=== PATIENT | male | born 1970 | race American Indian/Alaskan Native ===

== ENCOUNTER 2017-04-06 07:43 | Emergency (ER) | payer MEDICAID, OTHER ==
[2017-04-06 08:19] LABS: Basophils % (Auto) 0.7 % (0.0-1.8); Eosinophils % (Auto) 1.4 % (0.0-4.3); Hematocrit 40.5 % (35.5-45.6); Hemoglobin 13.9 gm/dl (11.8-15.2); Mean Corpuscular HGB Conc 34 % (32-34); Mean Corpuscular Hemoglobin 33 pg (28-32); Mean Corpuscular Volume 96 fl (84-94); Platelet Count 194 K/mm3 (140-440); Red Blood Count 4.22 M/mm3 (3.65-5.03); Red Cell Distribution Width 12.6 % (13.2-15.2); White Blood Count 3.5 K/mm3 (4.5-11.0)
[2017-04-06 08:37] LABS: Anion Gap 17 mmol/L; Blood Urea Nitrogen 13 mg/dL (9-20); Carbon Dioxide 27 mmol/L (22-30); Chloride 101.2 mmol/L (98-107); Glucose 177 mg/dL (75-100); Potassium 4.2 mmol/L (3.6-5.0); Sodium 141 mmol/L (137-145)
[2017-04-06] MEDS ORDERED: MOTRIN PO ONE (15:22)
--- NOTE | 2017-04-06 15:23 | Emergency Department Report ---
ED Chest Pain HPI - General Chief Complaint: Chest Pain Stated Complaint: CHEST PAIN Time Seen by Provider: 04/06/17 15:08 Source: patient Mode of arrival: Ambulatory Limitations: No Limitations - Related Data Home Medications Medication Instructions Recorded Confirmed Last Taken No Known Home Medications [No 04/06/17 04/06/17 Unknown Reported Home Medications] Allergies Allergy/AdvReac Type Severity Reaction Status Date / Time No Known Allergies Allergy Unverified 04/06/17 07:58 ED Review of Systems ROS: Stated complaint: CHEST PAIN Other details as noted in HPI ED Past Medical Hx - Past Medical History Previous Medical History?: Yes Additional medical history: Back pain/injury - Surgical History Past Surgical History?: No - Social History Smoking Status: Never Smoker Substance Use Type: Non Opiate Pain - Medications Home Medications: Home Medications Medication Instructions Recorded Confirmed Last Taken Type No Known Home Medications [No 04/06/17 04/06/17 Unknown History Reported Home Medications] ED Physical Exam - General Limitations: No Limitations ED Course Vital Signs 04/06/17 07:58 Temperature 98 F Pulse Rate 66 Respiratory 18 Rate Blood Pressure 112/73 O2 Sat by Pulse 99 Oximetry ED Medical Decision Making - Lab Data Result diagrams: 04/06/17 08:08 04/06/17 08:08 Critical care attestation.: If time is entered above; I have spent that time in minutes in the direct care of this critically ill patient, excluding procedure time. ED Disposition Condition: Stable Referrals: [facility] [Other] - 3-5 Days
--- NOTE | 2017-04-06 16:26 | Emergency Department Report ---
ED Chest Pain HPI - General Chief Complaint: Chest Pain Stated Complaint: CHEST PAIN Time Seen by Provider: 04/06/17 15:08 Source: patient Mode of arrival: Ambulatory Limitations: No Limitations - History of Present Illness Initial Comments: This is a 46-year-old male. He is previously unknown to me. His primary care doctor is Dr. Iglesias. The patient presents to ER complaining of chest pain. The chest pain is central, and does not radiate to the back, arms or neck. There is no nausea, vomiting or diaphoresis. There is no leg pain or leg swelling. No recent trips greater than 4 hours. No recent hospital admissions. Patient took aspirin yesterday. No cocaine use. Patient also complains of simultaneous paraspinal trapezius pain. Patient reports no recent trauma. Patient reports pain increases with palpation, range of motion, decreases with rest, and increases with palpation. There is no family history of heart disease that he is aware of. MD Complaint: chest pain -: Gradual, days(s) Onset: during rest Pain Location: substernal Severity scale (0 -10): 6 Quality: aching Consistency: constant Improves With: rest Worsens With: palpation, movement re: denies: nausea, vomting, diaphoresis, dyspnea, sense of impending doom Aspirin use within the Past 7 Days: (1) Yes - Related Data On Oral Contraceptives: No Home Medications Medication Instructions Recorded Confirmed Last Taken No Known Home Medications [No 04/06/17 04/06/17 Unknown Reported Home Medications] Allergies Allergy/AdvReac Type Severity Reaction Status Date / Time No Known Allergies Allergy Unverified 04/06/17 07:58 Heart Score - HEART Score History: Slightly suspicious EKG: Normal Age: 45-65 Risk factors: No known risk factors Troponin: < normal limit HEART Score: 1 - Critical Actions Critical Actions: 0-3 pts:0.9-1.7%risk of adverse cardiac event.Candidate for discharge ED Review of Systems ROS: Stated complaint: CHEST PAIN Other details as noted in HPI Constitutional: denies: diaphoresis, fever, malaise Eyes: denies: vision change ENT: denies: throat pain Respiratory: see HPI. denies: wheezing Cardiovascular: chest pain Gastrointestinal: denies: vomiting Genitourinary: as per HPI Musculoskeletal: denies: myalgia Skin: denies: lesions Neurological: denies: weakness Psychiatric: as per HPI ED Past Medical Hx - Past Medical History Previous Medical History?: Yes Additional medical history: Back pain/injury - Surgical History Past Surgical History?: No - Social History Smoking Status: Never Smoker Substance Use Type: Non Opiate Pain - Medications Home Medications: Home Medications Medication Instructions Recorded Confirmed Last Taken Type No Known Home Medications [No 04/06/17 04/06/17 Unknown History Reported Home Medications] ED Physical Exam - General Limitations: No Limitations General appearance: alert, in no apparent distress - Head Head exam: Present: atraumatic, normocephalic - Eye Eye exam: Present: normal appearance, EOMI. Absent: nystagmus - ENT ENT exam: Present: normal exam, normal orophraynx, mucous membranes moist - Neck Neck exam: Present: normal inspection, full ROM - Respiratory Respiratory exam: Present: normal lung sounds bilaterally, chest wall tenderness. Absent: respiratory distress, wheezes, rales, rhonchi, stridor - Cardiovascular Cardiovascular Exam: Present: regular rate, normal rhythm, normal heart sounds. Absent: systolic murmur, diastolic murmur, rubs, gallop - GI/Abdominal GI/Abdominal exam: Present: soft, normal bowel sounds. Absent: distended, tenderness, guarding, rebound, rigid, pulsatile mass - Rectal Rectal exam: Present: deferred - Extremities Exam Extremities exam: Present: normal inspection, full ROM, normal capillary refill. Absent: pedal edema, joint swelling, calf tenderness - Back Exam Back exam: Present: normal inspection, full ROM, paraspinal tenderness. Absent : tenderness, CVA tenderness (R), CVA tenderness (L), muscle spasm, vertebral tenderness - Neurological Exam Neurological exam: Present: alert, oriented X3, normal gait, other (Extraocular movements intact. Tongue midline. No facial droop. Facial sensation intact to light touch in the V1, V2, V3 distribution bilaterally. 5 and 5 strength in 4 extremities.. Sensation is intact to light touch in 4 extremities.). Absent : motor sensory deficit - Psychiatric Psychiatric exam: Present: normal affect, normal mood - Skin Skin exam: Present: warm, dry, intact, normal color. Absent: rash ED Course Vital Signs 04/06/17 04/06/17 04/06/17 07:58 13:33 14:00 Temperature 98 F Pulse Rate 66 52 L Respiratory 18 12 Rate Blood Pressure 112/73 120/78 O2 Sat by Pulse 99 99 100 Oximetry 04/06/17 04/06/17 04/06/17 14:30 15:00 15:31 Temperature Pulse Rate 51 L 47 L 57 L Respiratory 13 14 13 Rate Blood Pressure 120/72 125/70 124/88 O2 Sat by Pulse 99 98 98 Oximetry 04/06/17 04/06/17 04/06/17 15:36 16:00 16:35 Temperature Pulse Rate 59 L Respiratory 14 15 15 Rate Blood Pressure 131/82 O2 Sat by Pulse 99 99 Oximetry JACK score - Jack Score Age > 65: (0) No Aspirin use within the Past 7 Days: (1) Yes 3 or more CAD Risk Factors: (0) No 2 or more Angina events in past 24 hrs: (0) No Known CAD with more than 50% Stenosis: (0) No Elevated Cardiac Markers: (0) No ST Deviation Greater than 0.5mm: (0) No JACK Score: 1 ED Medical Decision Making - Lab Data Result diagrams: 04/06/17 08:08 04/06/17 08:08 Vital Signs 04/06/17 04/06/17 04/06/17 07:58 13:33 14:00 Temperature 98 F Pulse Rate 66 52 L Respiratory 18 12 Rate Blood Pressure 112/73 120/78 O2 Sat by Pulse 99 99 100 Oximetry 04/06/17 04/06/17 04/06/17 14:30 15:00 15:36 Temperature Pulse Rate 51 L 47 L Respiratory 13 14 14 Rate Blood Pressure 120/72 125/70 O2 Sat by Pulse 99 98 Oximetry Vital Signs 04/06/17 04/06/17 04/06/17 07:58 13:33 14:00 Temperature 98 F Pulse Rate 66 52 L Respiratory 18 12 Rate Blood Pressure 112/73 120/78 O2 Sat by Pulse 99 99 100 Oximetry 04/06/17 04/06/17 04/06/17 14:30 15:00 15:36 Temperature Pulse Rate 51 L 47 L Respiratory 13 14 14 Rate Blood Pressure 120/72 125/70 O2 Sat by Pulse 99 98 Oximetry - EKG Data -: EKG Interpreted by Ia EKG shows normal: sinus rhythm Rate: normal - EKG Data When compared to previous EKG there are: no significant change 04/06/17 16:28 . EKG #2 demonstrates sinus bradycardia, normal intervals, normal axis, not morphologically consistent with STEMI, nonspecific T-wave abnormalities noted EKG #1 demonstrates normal sinus, 65 bpm, normal intervals, normal axis, not consistent with STEMI, on both EKGs appeared to be unchanged from prior and each other. - Radiology Data Radiology results: image reviewed interpreted by me: X-ray of the chest is negative for acute disease - Medical Decision Making Differential diagnosis: Pneumonia, costochondritis, acute coronary syndrome, paraspinal pain assessment and plan: 46-year-old male with clinically atypical chest pain. He is low risk by JACK score, low risk by heart score, low risk by well's criteria , perc negative, without pulmonary embolus or DVT risk factors. Patient at low risk for major adverse cardiac event. X-ray of the chest was unremarkable. EKG with nonspecific abnormalities, however serial EKGs were unchanged, and appeared to be unchanged compared to prior from 2012 patient felt improved after pain medication. He is instructed to follow up with outpatient cardiology for outpatient acute coronary syndrome stratification. Critical care attestation.: If time is entered above; I have spent that time in minutes in the direct care of this critically ill patient, excluding procedure time. ED Disposition Clinical Impression: Chest pain Disposition: DC-01 TO HOME OR SELFCARE Is pt being admited?: No Does the pt Need Aspirin: No Condition: Stable Instructions: Chest Pain (ED) Additional Instructions: Continue current outpatient medications. Follow up with any of the listed cardiology specialists within the next 3-5 days. Take Tylenol every 4 hours, ibuprofen every 6 hours with food as needed for pain. Return to the ER right away with new pain, worsened pain, migration of pain, fevers, chills, confusion , intractable nausea or vomiting, inability to tolerate liquid feeds. Referrals: [facility] [Other] - 3-5 Days MEGHA MENCHACA MD [Staff Physician] - 3-5 Days BRADEN MONCADA MD [Staff Physician] - 3-5 Days
[2017-04-06 16:35] VITALS: BP 131/82
--- NOTE | 2017-04-06 16:55 | XRay Report ---
ROUTINE CHEST, TWO VIEWS: History: Chest pain. PA and lateral views demonstrate the heart and mediastinal contour to be of normal size and shape. The lungs are clear and fully expanded and the soft tissues and bony structures are normal. IMPRESSION: Normal study.
== END 2017-04-06 16:43 | disposition home or self-care (01) ==
LOC: ED 07:43
DX: R07.9 Chest pain, unspecified (principal)
CPT/HCPCS: 36415; 71020; 80048; 84484; 85025; 93005; 93010